=== PATIENT | male | born 2000 | race Caucasian/White ===

== ENCOUNTER 2022-12-08 17:29 | Emergency (ER) | payer OTHER ==
[~2022-12-08] VITALS: Ht 180.3 cm; Wt 74.8 kg
[~2022-12-08 17:29] MED LIST: AUGMENTIN ES-6100 ML PO; CONCERTA18 MG PO
== END 2022-12-08 19:09 | disposition home or self-care (01) ==
LOC: ED 17:29
DX: S61.012A Laceration without foreign body of left thumb without damage to nail, initial encounter (principal); Z91.018 Allergy to other foods; Z88.1 Allergy status to other antibiotic agents; Z79.899 Other long term (current) drug therapy; W26.0XXA Contact with knife, initial encounter; Y93.89 Activity, other specified; Y92.89 Other specified places as the place of occurrence of the external cause; Y99.8 Other external cause status